=== PATIENT | female | born 1975 | race Caucasian/White ===

== ENCOUNTER 2018-10-18 12:42 | Emergency (ER) | payer BC ==
[2018-10-18 12:49] VITALS: BP 134/79; PULSE 77; TEMP 98.2; BMI 18.8
--- NOTE | 2018-10-18 13:12 | PDOC ---
History of Present Illness - General Chief Complaint: Bite Stated Complaint: POSSIBLE TICK BITE BEHIND LEFT KNEE Time Seen by Provider: 10/18/18 12:44 - History of Present Illness Initial Comments: 10/18/18 13:16 43 y/o F with hx of Ulcerative Colitis presenting with concerns about a possible tick bite. She was in the [facility] yesterday when she noticed a bump behind her left knee. She did not see a tick on her own skin. However patient concerned because one of her companions noticed a tick on their skin. The area is not painful and there is no surrounding redness or rash that she could appreciate. She denies any fevers, chills, myalgias, rash, headaches, chest pain or shortness of breath. 10/18/18 13:22 Past History - Past Medical History Allergies/Adverse Reactions: Allergies Allergy/AdvReac Type Severity Reaction Status Date / Time No Known Allergies Allergy Verified 10/18/18 12:43 Home Medications: Ambulatory Orders Mesalamine [Canasa] 1,000 mg RC PRN PRN 10/18/18 Valacyclovir HCl [Valtrex -] 1,000 mg PO ASDIR PRN 10/18/18 COPD: No GI Disorders: Yes (colitis) Other medical history: cold sores - Suicide/Smoking/Psychosocial Hx Smoking History: Never smoked Have you smoked in the past 12 months: No Information on smoking cessation initiated: No Hx Alcohol Use: No *Physical Exam - Vital Signs Last Vital Signs Temp Pulse Resp BP Pulse Ox 98.2 F 77 18 134/79 100 10/18/18 12:42 10/18/18 12:42 10/18/18 12:42 10/18/18 12:42 10/18/18 12:42 - Physical Exam General Appearance: Yes: Nourished, Appropriately Dressed HEENT: positive: EOMI, Normal Voice. negative: Pale Conjunctivae Respiratory/Chest: positive: Lungs Clear, Normal Breath Sounds. negative: Respiratory Distress, Dullness Cardiovascular: positive: Regular Rate, S1, S2. negative: JVD, Murmur Integumentary: positive: Normal Color, Dry, Warm, Other (A small purplish bump located behind left knee. No surrounding erythema or rash. Not tender). negative: Cyanotic, Erythema, Pale, Cold, Moist, Hives, Petechiae, Rash, Swelling, Ecchymosis Neurologic: positive: Fully Oriented, Alert, Normal Mood/Affect Medical Decision Making - Medical Decision Making 10/18/18 13:19 100mg of doxycline PO ordered for prophylaxis of Lyme disease as a precaution. *DC/Admit/Observation/Transfer Diagnosis at time of Disposition: Rash and nonspecific skin eruption - Discharge Dispostion Disposition: HOME Decision to Admit order: No - Referrals - Patient Instructions Printed Discharge Instructions: DI for Rash Additional Instructions: You were given doxycyline 100mg PO for prohylaxis Return to the ER if you develop fevers, chills, muscle aches and pains, a spreading rash or redness around the affected area. Follow up with your primary care provider in 1-2 weeks. - Post Discharge Activity
[2018-10-18] MEDS ORDERED: DOXYCYCLINE HYCLATE 100 MG CAPSULE PO ONE ×2 (13:14→13:39)
--- NOTE | 2018-10-18 13:22 | PDOC ---
Attending Attestation - Resident Resident Name: Jose Sen - ED Attending Attestation I have performed the following: I have examined & evaluated the patient, The case was reviewed & discussed with the resident, I agree w/resident's findings & plan, Exceptions are as noted - HPI HPI: 10/18/18 13:20 43 years old no past medical history presents to the ED with small blood blister behind her left knee. She was recently in the [facility] was concerned that maybe she received tick bite does not remember seeing attack or having a tick attached to her one of her friends was in the same area did find a tick on her she been in the absence for several days so unclear when the bite may or may not have occurred she has no other symptoms no fever no chills no rash no chest pain or shortness of breath ROS: A complete review of 10 out of 10 review of systems is taken and is negative apart from what is previously mentioned below and in the HPI. - Physicial Exam PE: 10/18/18 13:21 Vitals: Triage Vital signs reviewed General Appearance: no acute distress, well nourished well developed, Extremities: Full range of motion to all extremities, no cyanosis, clubbing, or edema Skin: Warm and dry, no rashes or lesions, no rash, no petechiae, small blood blister behind left knee. Psych: normal mood, normal affect - Medical Decision Making 10/18/18 13:21 Well-appearing no apparent distress possible tick bite given unknown duration of possible exposure low risk profile to one dose of prophylactic doxycycline Findings, the need for follow-up and strict return instructions discussed with patient.
== END 2018-10-18 13:56 | disposition home or self-care (01) ==
LOC: FER 12:42
DX: R21 Rash and other nonspecific skin eruption (principal)
CPT/HCPCS: 99282-25